=== PATIENT | female | born 1950 | race Two or more races ===

== ENCOUNTER 2023-08-28 08:49 | Emergency (ER) | payer OTHER ==
[~2023-08-28] VITALS: Ht 147.3 cm; Wt 46.4 kg
[2023-08-28 08:54] VITALS: O2SAT 96
[2023-08-28 09:28] VITALS: BP 122/93; PULSE 118; RESP 16
[2023-08-28] MEDS ORDERED: HYDROmorphone HCL 2 MG/ML VL/or syr IM ONE (09:30)
[2023-08-28] MEDS ORDERED: HYDR-4795 PO (09:43)
[2023-08-28] MEDS ORDERED: MORP15TA PO ×3 (09:43→13:56)
[2023-08-28] MEDS ORDERED: MORP1TAB14 PO ×6 (11:50→13:38)
== END 2023-08-28 09:56 | disposition home or self-care (01) ==
LOC: ER 08:49
DX: G89.29 Other chronic pain (principal); M54.59 Other low back pain
CPT/HCPCS: 96372; 99283; J1170